=== PATIENT | female | born 1945 | race Caucasian/White ===

== ENCOUNTER → 2024-06-17 | Outpatient (REF) | payer MEDICARE ==
[~2024-06-17] MED LIST: CEPHALEXIN500 MG PO; HYDROCODON-ACE1 EA12 PO; METHOCARBAMOL500 MG PO
== END ==
LOC: RAD 14:19
PROVIDERS: ATTEND Family Medicine
DX: M25.551 Pain in right hip (principal); M25.552 Pain in left hip; M25.561 Pain in right knee
CPT/HCPCS: 73522

== ENCOUNTER → 2024-07-17 | Outpatient (REF) | payer MEDICARE | LOC: CT 11:47 | PROVIDERS: ATTEND Family Medicine | DX: S73.191A Other sprain of right hip, initial encounter (principal) | CPT/HCPCS: 72131 ==